=== PATIENT | male | born 1940 ===

== ENCOUNTER 2022-01-02 05:50 | Day surgery (SDC) | payer OTHER ==
[~2022-01-02] VITALS: Ht 177.8 cm; Wt 79.4 kg
[~2022-01-02 05:50] MED LIST: DAILY VALUE1 EACH PO; XARELTO20 M1 PO; ZANAFLEX2 M1 PO; [UNRECOGNIZED DRUG - OTHER] PO
== END 2022-01-02 15:00 | disposition home or self-care (01) ==
LOC: CIR.AMB 05:50
PROVIDERS: ATTEND Orthopaedic Surgery Hand Surgery
DX: G56.01 Carpal tunnel syndrome, right upper limb (principal); Z20.822 Contact with and (suspected) exposure to COVID-19; I48.91 Unspecified atrial fibrillation; Z87.891 Personal history of nicotine dependence